=== PATIENT | female | born 1950 | race African-American/Black ===

== ENCOUNTER → 2016-11-24 | Outpatient (CLI) | payer MEDICARE, MEDICAID | END | disposition home or self-care (01) | LOC: MAMMO 09:10 | PROVIDERS: ATTEND Family Medicine | DX: Z12.31 Encounter for screening mammogram for malignant neoplasm of breast (principal) | CPT/HCPCS: G0202 ==

== ENCOUNTER → 2016-12-04 | Outpatient (CLI) | payer MEDICARE, MEDICAID ==
[2016-12-04 10:12] LABS: HEMATOCRIT. 37.4 % (36.0-48.0); HEMOGLOBIN. 12.6 g/dL (12.0-16.0); MEAN CORPUSCULAR HEMOGLOBIN 26.2 pg (28.0-32.0); MEAN CORPUSCULAR HGB CONC 33.6 g/dL (31.0-37.0); MEAN CORPUSCULAR VOLUME 78.2 fL (81.0-99.0); PLATELET 257 x1000/uL (130-400); RED BLOOD CELL COUNT 4.79 mill/uL (4.2-5.4); RED CELL DISTRIBUTION WIDTH 15.7 % (11.6-14.6); WHITE BLOOD COUNT 9.5 x1000/uL (4.5-11.0)
[2016-12-04 10:13] LABS: BASOPHILS % 0.5 % (0.0-2.0); DIFFERENTIAL COMMENT 0; EOSINOPHILS % 3.1 % (0.0-5.0); LYMPHOCYTES % 32.4 % (20.0-50.0); MONOCYTES % 8.1 % (2.0-8.0); NEUTROPHILS % 55.9 % (40.0-76.0)
[2016-12-04 10:52] LABS: ALANINE AMINOTRANSFERASE 22 IU/L (13-61); ANION GAP 13; CARBON DIOXIDE 30 mEq/L (21-32); CHLORIDE 104 mEq/L (98-107); HDL CHOLESTEROL 68 mg/dL (40-59); INDEX HEMOLYSI 1 (1-3); INDEX ICTERIC 1 (1-4); INDEX LIPEMIC 1 (1-3); LDL CHOLESTEROL 82 mg/dL (5-100); T4 FREE 0.95 ng/dL (0.76-1.46); TRIGLYCERIDE 82 mg/dL (0-150); UREA NITROGEN BLOOD 21 mg/dL (7-21); URIC ACID 5.5 mg/dL (2.6-7.2); eGFR > 60 mL/min (>60)
[2016-12-04 10:54] LABS: T3 FREE 3.14 pg/ml (2.18-3.98)
[2016-12-05 09:06] LABS: RF PROFILE < 10.0 IU/mL (0.0-13.9)
[2016-12-06 17:13] LABS: CCP IgG/IgA PROFILE 4 units (0-19)
== END | disposition home or self-care (01) ==
LOC: LAB 09:19
PROVIDERS: ATTEND Family Medicine
DX: I10 Essential (primary) hypertension (principal); E11.9 Type 2 diabetes mellitus without complications; E78.4 Other hyperlipidemia; J30.9 Allergic rhinitis, unspecified; J01.90 Acute sinusitis, unspecified
CPT/HCPCS: 36415; 80053; 80061; 83036; 84439; 84443; 84481; 84550; 85025; 86200; 86431

== ENCOUNTER → 2016-12-08 | Outpatient (CLI) | payer MEDICARE, MEDICAID ==
[2016-12-08 08:40] LABS: COLOR URINE YELLOW (YELLOW)
[2016-12-08 08:48] LABS: GLUCOSE URINE NEGATIVE (NEGATIVE); KETONES URINE NEGATIVE (NEGATIVE); LEUKOCYTE ESTERASE URINE 1+ (NEGATIVE); NITRITE URINE NEGATIVE (NEGATIVE); OCCULT BLOOD URINE NEGATIVE (NEGATIVE); PARTIAL THROMBOPLASTIN TIME 26.3 sec (24.0-34.0); PROTEIN URINE NEGATIVE (NEGATIVE); PROTHROMBIN TIME 10.7 sec; SPECIFIC GRAVITY URINE 1.014 (1.005-1.030); UROBILINOGEN URINE 0.2 E.U./dL (0.2-1.0)
[2016-12-08 08:49] LABS: CLARITY URINE CLEAR (CLEAR)
[2016-12-08 09:17] LABS: SQUAMOUS EPITHELIAL CELL URINE FEW /lpf (RARE/1+)
[2016-12-08 09:19] LABS: RBC URINE 0-2 /hpf (0-2)
[2016-12-08 09:20] LABS: BACTERIA URINE TRACE
== END | disposition home or self-care (01) ==
LOC: LAB 08:20
PROVIDERS: ATTEND Family Medicine
DX: Z01.812 Encounter for preprocedural laboratory examination (principal); N39.0 Urinary tract infection, site not specified
CPT/HCPCS: 36415; 81001; 85610; 85730; 87086

== ENCOUNTER → 2016-12-09 | Outpatient (CLI) | payer MEDICARE, MEDICAID | END | disposition home or self-care (01) | LOC: RAD 09:08 | PROVIDERS: ATTEND Family Medicine | DX: Z01.818 Encounter for other preprocedural examination (principal); M47.894 Other spondylosis, thoracic region; R05 Cough | CPT/HCPCS: 71020 ==

== ENCOUNTER → 2017-11-25 | Outpatient (CLI) | payer MEDICARE, MEDICAID | END | disposition home or self-care (01) | LOC: MAMMO 07:41 | PROVIDERS: ATTEND Family Medicine | DX: Z12.31 Encounter for screening mammogram for malignant neoplasm of breast (principal) | CPT/HCPCS: 77067 ==

== ENCOUNTER → 2018-03-13 | Outpatient (CLI) | payer MEDICARE, MEDICAID ==
[2018-03-13 08:58] LABS: BASOPHILS % 0.6 % (0.0-2.0); EOSINOPHILS % 3.3 % (0.0-5.0); HEMATOCRIT. 37.9 % (36.0-48.0); HEMOGLOBIN. 12.6 g/dL (12.0-16.0); LYMPHOCYTES % 37.5 % (20.0-50.0); MEAN CORPUSCULAR HEMOGLOBIN 26.3 pg (28.0-32.0); MEAN CORPUSCULAR VOLUME 79.4 fL (81.0-99.0); MONOCYTES % 8.7 % (2.0-8.0); NEUTROPHILS % 49.9 % (40.0-76.0); PLATELET 278 x1000/uL (130-400); RED BLOOD CELL COUNT 4.78 mill/uL (4.2-5.4); RED CELL DISTRIBUTION WIDTH 15.6 % (11.6-14.6)
[2018-03-13 09:15] LABS: CHLORIDE 106 mEq/L (98-107)
[2018-03-13 09:21] LABS: LDL CHOLESTEROL 68 mg/dL (5-100)
[2018-03-13 09:24] LABS: HDL CHOLESTEROL 62 mg/dL (40-59); T4 FREE 0.88 ng/dL (0.76-1.46)
[2018-03-14 09:06] LABS: RF PROFILE < 10.0 IU/mL (0.0-13.9)
[2018-03-14 13:06] LABS: *CREATININE RANDOM URINE 87.2 mg/dL (Not Estab.); MICROALBUMIN RANDOM URINE 4.5 ug/mL (Not Estab.)
== END | disposition home or self-care (01) ==
LOC: LAB 08:11
PROVIDERS: ATTEND Family Medicine
DX: E11.9 Type 2 diabetes mellitus without complications (principal); I10 Essential (primary) hypertension; E78.5 Hyperlipidemia, unspecified; J45.909 Unspecified asthma, uncomplicated; H69.82 Other specified disorders of Eustachian tube, left ear; J01.90 Acute sinusitis, unspecified; Z68.37 Body mass index [BMI] 37.0-37.9, adult; Z96.651 Presence of right artificial knee joint
CPT/HCPCS: 36415; 80053; 80061; 82043; 82570; 83036; 84439; 84443; 84481; 84550; 85025; 86200; 86431; 86787

== ENCOUNTER → 2019-03-26 | Outpatient (CLI) | payer MEDICARE, MEDICAID ==
[2019-03-26 10:05] LABS: CHLORIDE 104 mEq/L (98-107)
[2019-03-26 10:11] LABS: LDL CHOLESTEROL 94 mg/dL (5-100)
[2019-03-26 10:12] LABS: BASOPHILS % 0.6 % (0.0-2.0); EOSINOPHILS % 2.4 % (0.0-5.0); HEMATOCRIT. 40.5 % (36.0-48.0); HEMOGLOBIN. 13.5 g/dL (12.0-16.0); LYMPHOCYTES % 31.4 % (20.0-50.0); MEAN CORPUSCULAR HEMOGLOBIN 26.5 pg (28.0-32.0); MEAN CORPUSCULAR VOLUME 79.7 fL (81.0-99.0); NEUTROPHILS % 57.6 % (40.0-76.0); PLATELET 255 x1000/uL (130-400); RED BLOOD CELL COUNT 5.08 mill/uL (4.2-5.4)
[2019-03-26 10:13] LABS: HDL CHOLESTEROL 64 mg/dL (40-59)
[2019-03-26 10:14] LABS: T4 FREE 0.91 ng/dL (0.76-1.46)
== END | disposition home or self-care (01) ==
LOC: LAB 09:08
PROVIDERS: ATTEND Family Medicine
DX: E11.9 Type 2 diabetes mellitus without complications (principal); I10 Essential (primary) hypertension; E78.5 Hyperlipidemia, unspecified; J45.20 Mild intermittent asthma, uncomplicated; M65.311 Trigger thumb, right thumb
CPT/HCPCS: 36415; 80061; 83036; 84439; 84443; 84481; 84550

== ENCOUNTER → 2019-03-26 | Outpatient (CLI) | payer MEDICARE, MEDICAID ==
[2019-03-26 11:39] LABS: VITAMIN B12 SERUM 638 pg/mL (211-911)
[2019-03-27 09:06] LABS: IMMUNOGLOBULIN A 324 mg/dL (87-352); IMMUNOGLOBULIN G 1780 mg/dL (700-1600); IMMUNOGLOBULIN M 70 mg/dL (26-217)
== END | disposition home or self-care (01) ==
LOC: LAB 08:48
PROVIDERS: ATTEND Psychiatry & Neurology Neurology
DX: G62.9 Polyneuropathy, unspecified (principal); Z79.899 Other long term (current) drug therapy
CPT/HCPCS: 36415; 82607; 82784; 86334

== ENCOUNTER 2020-03-28 17:33 | Emergency (ER) | payer MEDICARE, MEDICAID ==
[~2020-03-28] VITALS: Ht 177.8 cm; Wt 125.0 kg
[2020-03-28 17:44] VITALS: BP 143/72
[2020-03-28] MEDS ORDERED: GLIM2TAB30 PO (17:54)
[2020-03-28] MEDS ORDERED: MONT5TAB16 PO (17:54)
[2020-03-28] MEDS ORDERED: AMLO10TA80 PO (17:54)
[2020-03-28] MEDS ORDERED: PRAV40TA58 PO (17:54)
[2020-03-28] MEDS ORDERED: OLME40TA18 PO (17:54)
[2020-03-28] MEDS ORDERED: CETI-114 PO (17:54)
[2020-03-28] MEDS ORDERED: NEBI10TA2 PO (17:54)
[2020-03-28] MEDS ORDERED: ZOLP12.543 PO (17:54)
[2020-03-28] MEDS ORDERED: HYDR-2510 PO (17:54)
[2020-03-28] MEDS ORDERED: IPRA4AER IH (17:54)
[2020-03-28] MEDS ORDERED: MIRT45TA83 PO (17:54)
[2020-03-28] MEDS ORDERED: METF-815 PO (17:54)
[2020-03-28] MEDS ORDERED: OMEP20TA2 PO (17:54)
[2020-03-28] MEDS ORDERED: FLUT1DIS2 IH (17:54)
== END 2020-03-28 19:17 | disposition left against medical advice (07) ==
LOC: ER 17:33
DX: R68.89 Other general symptoms and signs (principal); Z53.21 Procedure and treatment not carried out due to patient leaving prior to being seen by health care provider
CPT/HCPCS: 93005

== ENCOUNTER → 2020-04-23 | Outpatient (CLI) | payer MEDICARE, MEDICAID ==
[~2020-04-23] MED LIST: AMLO10TA80 PO; CETI-114 PO; FLUT1DIS2 IH; GLIM2TAB30 PO; HYDR-2510 PO; IPRA4AER IH; METF-815 PO; MIRT45TA83 PO; MONT5TAB16 PO; NEBI10TA2 PO; OLME40TA18 PO; OMEP20TA2 PO; PRAV40TA58 PO; ZOLP12.543 PO
[2020-04-23 09:32] LABS: BASOPHILS % 0.8 % (0.0-2.0); EOSINOPHILS % 2.5 % (0.0-5.0); HEMATOCRIT. 42.3 % (36.0-48.0); HEMOGLOBIN. 13.6 g/dL (12.0-16.0); LYMPHOCYTES % 38.5 % (20.0-50.0); MEAN CORPUSCULAR HEMOGLOBIN 26.1 pg (28.0-32.0); MEAN CORPUSCULAR VOLUME 81.1 fL (81.0-99.0); MEAN PLATELET VOLUME 8.3 fl (7.4-10.4); MONOCYTES % 8.8 % (2.0-8.0); NEUTROPHILS % 49.4 % (40.0-76.0); PLATELET 255 x1000/uL (130-400); RED BLOOD CELL COUNT 5.22 mill/uL (4.2-5.4); RED CELL DISTRIBUTION WIDTH 15.1 % (11.6-14.6)
[2020-04-23 09:39] LABS: INR 1.1; PARTIAL THROMBOPLASTIN TIME 27.1 sec (23.4-31.0); PROTHROMBIN TIME 11.1 sec (9.6-11.0)
== END | disposition home or self-care (01) ==
LOC: LAB 08:43
PROVIDERS: ATTEND Family Medicine
DX: E11.9 Type 2 diabetes mellitus without complications (principal); H81.09 Meniere's disease, unspecified ear; I10 Essential (primary) hypertension; J45.909 Unspecified asthma, uncomplicated; Z79.899 Other long term (current) drug therapy
CPT/HCPCS: 36415; 80048; 85025

== ENCOUNTER → 2020-07-24 | Outpatient (CLI) | payer MEDICARE, MEDICAID | END | disposition home or self-care (01) | LOC: LAB 09:01 | PROVIDERS: ATTEND Family Medicine | DX: E11.9 Type 2 diabetes mellitus without complications (principal); E78.5 Hyperlipidemia, unspecified; I10 Essential (primary) hypertension | CPT/HCPCS: 36415; 80061; 83036; 84450; 84460 ==

== ENCOUNTER → 2021-05-28 | Outpatient (CLI) | payer MEDICARE, MEDICAID ==
[~2021-05-28] MED LIST changes: -CETI-114 PO; +CETI-89 PO; -HYDR-2510 PO; +HYDR50TA PO; -METF-815 PO; +METF-873 PO; -MONT5TAB16 PO; +MONT5TAB23 PO
[2021-05-28 10:35] LABS: BASOPHILS % 0.9 % (0.0-2.0); EOSINOPHILS % 3.8 % (0.0-5.0); HEMATOCRIT. 40.8 % (36.0-48.0); HEMOGLOBIN. 13.3 g/dL (12.0-16.0); LYMPHOCYTES % 41.3 % (20.0-50.0); MEAN CORPUSCULAR HEMOGLOBIN 25.7 pg (28.0-32.0); MEAN CORPUSCULAR VOLUME 78.6 fL (81.0-99.0); MEAN PLATELET VOLUME 8.1 fl (7.4-10.4); MONOCYTES % 9.4 % (2.0-8.0); NEUTROPHILS % 44.6 % (40.0-76.0); PLATELET 290 x1000/uL (130-400); RED BLOOD CELL COUNT 5.19 mill/uL (4.2-5.4); RED CELL DISTRIBUTION WIDTH 15.5 % (11.6-14.6)
[2021-05-28 10:40] LABS: CHLORIDE 109 mEq/L (98-107)
[2021-05-28 10:52] LABS: LDL CHOLESTEROL 77 mg/dL (5-100)
[2021-05-28 10:53] LABS: HDL CHOLESTEROL 74 mg/dL (40-59); T4 FREE 0.81 ng/dL (0.76-1.46)
[2021-05-29 04:10] LABS: *CREATININE RANDOM URINE 104.3 mg/dL (Not Estab.); MICROALBUMIN RANDOM URINE 19.2 ug/mL (Not Estab.)
== END | disposition home or self-care (01) ==
LOC: LAB 09:45
PROVIDERS: ATTEND Family Medicine
DX: E11.9 Type 2 diabetes mellitus without complications (principal); I10 Essential (primary) hypertension; E78.5 Hyperlipidemia, unspecified; J45.909 Unspecified asthma, uncomplicated; H81.09 Meniere's disease, unspecified ear
CPT/HCPCS: 36415; 80053; 80061; 82043; 82270; 82570; 83036; 84439; 84443; 85025

== ENCOUNTER → 2021-09-01 | Outpatient (CLI) | payer MEDICARE, MEDICAID ==
[2021-09-01 14:13] LABS: CHLORIDE 108 mEq/L (98-107)
[2021-09-01 14:20] LABS: LDL CHOLESTEROL 77 mg/dL (5-100)
[2021-09-01 14:21] LABS: HDL CHOLESTEROL 73 mg/dL (40-59)
== END | disposition home or self-care (01) ==
LOC: LAB 13:10
PROVIDERS: ATTEND Family Medicine
DX: E11.9 Type 2 diabetes mellitus without complications (principal); E78.5 Hyperlipidemia, unspecified; I10 Essential (primary) hypertension
CPT/HCPCS: 36415; 80053; 80061; 83036

== ENCOUNTER → 2022-04-05 | Outpatient (CLI) | payer MEDICARE, MEDICAID ==
[~2022-04-05] MED LIST changes: -MONT5TAB23 PO; +MONT5TAB25 PO; -OMEP20TA2 PO; +OMEP20TA23 PO
[2022-04-05 09:08] LABS: BASOPHILS % 0.9 % (0.0-2.0); EOSINOPHILS % 3.7 % (0.0-5.0); HEMATOCRIT. 37.1 % (36.0-48.0); HEMOGLOBIN. 11.7 g/dL (12.0-16.0); LYMPHOCYTES % 30.1 % (20.0-50.0); MEAN CORPUSCULAR HEMOGLOBIN 21.8 pg (28.0-32.0); MEAN CORPUSCULAR VOLUME 69.3 fL (81.0-99.0); MEAN PLATELET VOLUME 8.6 fl (7.4-10.4); NEUTROPHILS % 57.3 % (40.0-76.0); RED BLOOD CELL COUNT 5.35 mill/uL (4.2-5.4); RED CELL DISTRIBUTION WIDTH 22.2 % (11.6-14.6)
[2022-04-05 09:25] LABS: PLATELET 302 x1000/uL (130-400)
[2022-04-06 11:25] LABS: PLATELET ESTIMATE NORMAL
== END | disposition home or self-care (01) ==
LOC: LAB 08:36
PROVIDERS: ATTEND Family Medicine
DX: Z87.19 Personal history of other diseases of the digestive system (principal)
CPT/HCPCS: 36415; 85025; 85049